=== PATIENT | male | born 2005 | race African-American/Black ===

== ENCOUNTER 2025-01-10 07:33 | Outpatient (CLI) | payer OTHER | END 2025-01-10 07:34 | disposition home or self-care (01) | LOC: TOM 07:33 | PROVIDERS: ATTEND Internal Medicine Hematology & Oncology | DX: D50.8 Other iron deficiency anemias (principal) ==

== ENCOUNTER → 2025-02-05 06:54 | Outpatient (CLI) | payer OTHER ==
[2025-02-05 08:02] LABS: BASO % 0.5 % (0.1-1.2); EOS # 0.18 (0.04-0.54); EOS % 1.7 % (0.7-7.0); LYMPH # 3.01 (1.18-3.74); LYMPH % 28.6 % (19.3-53.1); MEAN PLATELET VOLUME 11.10 fl (9.4-12.4); MONO # 0.80 (0.24-0.82); MONO % 7.6 % (4.7-12.5); NEUT # 6.47 (1.56-6.13); NEUT % 61.3 % (34.0-71.1); RED CELL DISTRIBUTION WIDTH 16.1 % (11.6-14.4)
[2025-02-05 08:22] LABS: % SATURACION 13.5 % (20-50); ALT/SGPT 22.0 U/L (12-78); AST/SGOT 16.0 U/L (15-37); BILIRUBIN TOTAL 0.39 mg/dL (0.3-1.2); BUN CREA RATIO 14.0 (7.0-25.0); CREATININE SERUM 0.79 mg/dL (0.70-1.30); FE 37.0 ug/dl (65-175); FREE TRIODOTIRONINE 2.99 pg/ml (2.18-3.98); GFR 122.65; GLOBULINA 5.2 G/DL (2.4-3.5); GLUCOSE FASTING 80.0 mg/dL (65-100); LDH 91.0 U/L (87-241); OSMOLALITY SERUM 278.0 MOSM/KG (275-295); T3 UPTAKE 34.0 % (33-40); T4 FREE 1.22 NG/ML (0.76-1.46); T4 TOTAL 9.3 UG/DL (4.5-12.1); TSH 0.962 uIU/mL (0.358-3.74)
[2025-02-05 10:56] LABS: FOLIC ACID 19.02 ng/ml (4.78-20); T3 TOTAL 1.54 ng/ml (0.846-2.02)
[2025-02-06 09:11] LABS: ANTI THYROID PEROXIDASE 13 IU/mL (0-34)
== END | disposition home or self-care (01) ==
LOC: LAB 06:54
PROVIDERS: ATTEND Internal Medicine Hematology & Oncology
DX: D50.8 Other iron deficiency anemias (principal); R51.9 Headache, unspecified; G43.001 Migraine without aura, not intractable, with status migrainosus; E56.1 Deficiency of vitamin K; I10 Essential (primary) hypertension; R74.02 Elevation of levels of lactic acid dehydrogenase [LDH]; K76.89 Other specified diseases of liver; E03.8 Other specified hypothyroidism; E06.3 Autoimmune thyroiditis

== ENCOUNTER 2025-05-29 07:27 | Outpatient (CLI) | payer OTHER ==
[2025-05-29 08:29] LABS: BASO % 0.7 % (0.1-1.2); EOS # 0.15 (0.04-0.54); EOS % 1.6 % (0.7-7.0); LYMPH # 2.76 (1.18-3.74); LYMPH % 29.9 % (19.3-53.1); MEAN PLATELET VOLUME 10.90 fl (9.4-12.4); MONO # 0.84 (0.24-0.82); MONO % 9.1 % (4.7-12.5); NEUT # 5.39 (1.56-6.13); NEUT % 58.5 % (34.0-71.1); RED CELL DISTRIBUTION WIDTH 15.9 % (11.6-14.4)
[2025-05-29 09:18] LABS: % SATURACION 33.6 % (20-50); ALT/SGPT 28.0 U/L (12-78); AST/SGOT 20.0 U/L (15-37); BILIRUBIN TOTAL 0.67 mg/dL (0.3-1.2); BUN CREA RATIO 11.0 (7.0-25.0); CREATININE SERUM 0.8 mg/dL (0.70-1.30); FE 92.0 ug/dl (65-175); GFR 120.88; GLOBULINA 4.9 G/DL (2.4-3.5); GLUCOSE FASTING 83.0 mg/dL (65-100); LDH 116.0 U/L (87-241); OSMOLALITY SERUM 277.0 MOSM/KG (275-295)
== END 2025-05-29 07:34 | disposition home or self-care (01) ==
LOC: LAB 07:27
PROVIDERS: ATTEND Internal Medicine Hematology & Oncology
DX: D50.8 Other iron deficiency anemias (principal); I10 Essential (primary) hypertension; R74.02 Elevation of levels of lactic acid dehydrogenase [LDH]; K76.89 Other specified diseases of liver; R51.0 Headache with orthostatic component, not elsewhere classified; G43.001 Migraine without aura, not intractable, with status migrainosus; E56.1 Deficiency of vitamin K